=== PATIENT | male | born 1945 | race Caucasian/White ===

== ENCOUNTER 2016-12-07 15:10 | Emergency (ER) | payer MEDICARE ==
--- NOTE | 2016-12-07 15:37 | ERPHSYRPT ---
- History of Present Illness Time Seen by Provider: 12/07/16 15:33 Source: patient Exam Limitations: no limitations Patient Subjective Stated Complaint: feet and lower leg swelling starting yesterday Triage Nursing Assessment: swelling noted to bilateral lower legs. unable to palpate pulses due to swelling. abrasion noted to right lower leg. states ran into chair this AM Physician History: 71 y/o male with history of CHF currently on lasix 40mg daily comes to the ER with complaints of bilateral leg swelling for the past 3 days. Pt has been compliant on his meds and has not increased his salt intake. Pt admits to dyspnea on exertion but denies any chest pain, palpitations, dizziness, cough or wheezing. Pt has had this issue in the past. Timing/Duration: day(s) (3) Activities at Onset: none Aspirin Treatment Today: no aspirin today Allergies/Adverse Reactions: No Known Drug Allergies Allergy (Verified 03/27/16 16:39) Hx Tetanus, Diphtheria Vaccination/Date Given: Yes Hx Influenza Vaccination/Date Given: Yes Hx Pneumococcal Vaccination/Date Given: Yes - Review of Systems Constitutional: No Fever, No Chills Eyes: No Symptoms Ears, Nose, & Throat: No Symptoms Respiratory: Dyspnea on Exertion (JOSE), No Cough, No Dyspnea Cardiac: No Chest Pain, No Edema, No Syncope Abdominal/Gastrointestinal: No Abdominal Pain, No Nausea, No Vomiting, No Diarrhea Genitourinary Symptoms: No Dysuria Musculoskeletal: No Back Pain, No Neck Pain Skin: Other (leg edema), No Rash Neurological: No Dizziness, No Focal Weakness, No Sensory Changes Psychological: No Symptoms Endocrine: No Symptoms All Other Systems: Reviewed and Negative - Past Medical History Pertinent Past Medical History: Yes Neurological History: No Pertinent History ENT History: No Pertinent History Cardiac History: Arrhythmia, High Cholesterol, Hypertension Respiratory History: COPD Endocrine Medical History: Diabetes Type II Musculoskeletal History: Arthritis GI Medical History: GERD History: No Pertinent History Psycho-Social History: No Pertinent History Male Reproductive Disorders: No Pertinent History - Past Surgical History Past Surgical History: Yes Neuro Surgical History: No Pertinent History Cardiac: No Pertinent History Respiratory: No Pertinent History Gastrointestinal: Other Genitourinary: No Pertinent History Musculoskeletal: No Pertinent History Male Surgical History: No Pertinent History Other Surgical History: pilonidal cyst; abdominal surgery in 1966 to repair abdominal wound. - Social History Smoking Status: Never smoker How long have you smoked: 35 Exposure to second hand smoke: No Drug Use: none Patient Lives Alone: Yes - Nursing Vital Signs Nursing Vital Signs: Initial Vital Signs Temperature 98.2 F 12/07/16 15:15 Pulse Rate 72 12/07/16 15:15 Respiratory Rate 20 12/07/16 15:15 Blood Pressure 144/58 12/07/16 15:15 O2 Sat by Pulse Oximetry 97 12/07/16 15:15 Pain Scale Pain Intensity 0 - Physical Exam General Appearance: no apparent distress, alert Eye Exam: PERRL/EOMI, eyes nml inspection Ears, Nose, Throat Exam: normal ENT inspection, moist mucous membranes Neck Exam: normal inspection, non-tender, supple Respiratory Exam: normal breath sounds, lungs clear, No respiratory distress Cardiovascular Exam: regular rate/rhythm, normal heart sounds, No edema Gastrointestinal/Abdomen Exam: soft, No tenderness, No mass Back Exam: normal inspection, No CVA tenderness, No vertebral tenderness Extremity Exam: normal inspection, normal range of motion, pedal edema, swelling Neurologic Exam: alert, oriented x 3, cooperative, normal mood/affect, nml cerebellar function, sensation nml, No motor deficits Skin Exam: normal color, warm, dry Lymphatic Exam: No adenopathy SpO2: 97 Oxygen Delivery: Nasal Cannula - Course Nursing assessment & vital signs reviewed: Yes EKG Interpreted by Me: RATE (HR 68), Sinus Rhythm, NORMAL AXIS, NORMAL INTERVALS , NORMAL QRS Ordered Tests: Active Orders 24 hr Category Date Time Status Certified Medical Asst STAT Care 12/07/16 15:38 Active EKG-ER Only STAT Care 12/07/16 15:37 Active IV Insertion STAT Care 12/07/16 15:37 Active CHEST 2 VIEWS (PA AND LAT) Stat Exams 12/07/16 15:37 Completed CBC W DIFF Stat Lab 12/07/16 15:25 Completed CMP Stat Lab 12/07/16 15:25 Completed MAGNESIUM Stat Lab 12/07/16 15:25 Completed NT PRO BNP Stat Lab 12/07/16 15:25 Completed PROTIME WITH INR Stat Lab 12/07/16 15:25 Completed PTT Stat Lab 12/07/16 15:25 Completed TROPONIN Q3H Lab 12/07/16 15:25 Completed TROPONIN Q3H Lab 12/07/16 18:45 Ordered TROPONIN Q3H Lab 12/07/16 21:45 Ordered TROPONIN Q3H Lab 12/08/16 00:45 Ordered TROPONIN Q3H Lab 12/08/16 03:45 Ordered UA W/RFX UR CULTURE Stat Lab 12/07/16 16:45 Completed Medication Summary Discontinued Medications Generic Name Dose Route Start Last Admin Trade Name Inder PRN Reason Stop Dose Admin Furosemide 60 mg 12/07/16 15:52 12/07/16 16:01 Furosemide 100mg/10 Ml Vial IV 12/07/16 15:53 60 mg STAT ONE Administration Furosemide Confirm 12/07/16 15:55 Furosemide 100mg/10 Ml Vial Administered 12/07/16 15:56 Dose 100 mg .ROUTE .STK-MED ONE Lab/Rad Data: Laboratory Result Diagrams 12/07/16 15:25 12/07/16 15:25 Laboratory Results 12/07/16 12/07/16 12/07/16 Range/Units 16:45 15:25 15:25 WBC (4.0-10.5) K/mm3 RBC (4.1-5.6) M/mm3 Hgb (12.5-18.0) gm/dl Hct (42-50) % MCV (78-100) fl MCH (26-32) pg MCHC (32-36) g/dl RDW (11.5-14.0) % Plt Count (150-450) K/mm3 MPV (6-9.5) fl Gran % (36.0-66.0) % Lymphocytes % (24.0-44.0) % Monocytes % (0.0-12.0) % Eosinophils % (0.00-5.0) % Basophils % (0.0-0.4) % Basophils # (0-0.4) INR 1.05 (0.8-3.0) APTT 32.3 (24.1-36.1) SECONDS Sodium (136-145) mEq/L Potassium (3.5-5.1) mEq/L Chloride (98-107) mEq/L Carbon Dioxide (21-32) mEq/L Anion Gap (5-15) MEQ/L BUN (9-20) mg/dL Creatinine (0.55-1.30) mg/dl Estimated GFR ML/MIN Glucose (70-110) MG/DL Calcium (8.5-10.1) mg/dL Magnesium (1.8-2.4) mg/dL Total Bilirubin (0.2-1.0) mg/dL AST (15-37) U/L ALT (12-78) U/L Alkaline Phosphatase (46-116) U/L Troponin I < 0.017 (0.000-0.056) ng/ml NT-Pro-B Natriuret Pep (0-125) pg/ml Serum Total Protein (6.4-8.2) gm/dL Albumin (3.4-5.0) g/dL Ur Collection Type CCMS Urine Color YELLOW (YELLOW) Urine Appearance CLEAR (CLEAR) Urine pH 7.0 (5-6) Ur Specific [place] 1.010 (1.005-1.025) Urine Protein NEGATIVE (Negative) Urine Ketones NEGATIVE (NEGATIVE) Urine Blood NEGATIVE (0-5) Marques/ul Urine Nitrite NEGATIVE (NEGATIVE) Urine Bilirubin NEGATIVE (NEGATIVE) Urine Urobilinogen 1 (0-1) mg/dL Ur Leukocyte Esterase NEGATIVE (NEGATIVE) Urine Glucose NEGATIVE (NEGATIVE) mg/dL Specimen Received 12-07-16 1650 12/07/16 12/07/16 Range/Units 15:25 15:25 WBC 5.9 (4.0-10.5) K/mm3 RBC 3.87 L (4.1-5.6) M/mm3 Hgb 13.1 (12.5-18.0) gm/dl Hct 41.4 L (42-50) % MCV 107.0 H (78-100) fl MCH 33.8 H (26-32) pg MCHC 31.6 L (32-36) g/dl RDW 13.0 (11.5-14.0) % Plt Count 81 L (150-450) K/mm3 MPV 13.4 H (6-9.5) fl Gran % 58.9 (36.0-66.0) % Lymphocytes % 28.1 (24.0-44.0) % Monocytes % 9.6 (0.0-12.0) % Eosinophils % 3.2 (0.00-5.0) % Basophils % 0.2 (0.0-0.4) % Basophils # 0.01 (0-0.4) INR (0.8-3.0) APTT (24.1-36.1) SECONDS Sodium 144 (136-145) mEq/L Potassium 4.0 (3.5-5.1) mEq/L Chloride 103 (98-107) mEq/L Carbon Dioxide 36.9 H (21-32) mEq/L Anion Gap 7.8 (5-15) MEQ/L BUN 8 L (9-20) mg/dL Creatinine 0.75 (0.55-1.30) mg/dl Estimated GFR > 60 ML/MIN Glucose 162 H (70-110) MG/DL Calcium 8.8 (8.5-10.1) mg/dL Magnesium 1.9 (1.8-2.4) mg/dL Total Bilirubin 0.40 (0.2-1.0) mg/dL AST 23 (15-37) U/L ALT 29 (12-78) U/L Alkaline Phosphatase 150 H (46-116) U/L Troponin I (0.000-0.056) ng/ml NT-Pro-B Natriuret Pep 176 H (0-125) pg/ml Serum Total Protein 6.7 (6.4-8.2) gm/dL Albumin 3.2 L (3.4-5.0) g/dL Ur Collection Type Urine Color (YELLOW) Urine Appearance (CLEAR) Urine pH (5-6) Ur Specific [place] (1.005-1.025) Urine Protein (Negative) Urine Ketones (NEGATIVE) Urine Blood (0-5) Marques/ul Urine Nitrite (NEGATIVE) Urine Bilirubin (NEGATIVE) Urine Urobilinogen (0-1) mg/dL Ur Leukocyte Esterase (NEGATIVE) Urine Glucose (NEGATIVE) mg/dL Specimen Received - Progress Progress: improved Progress Note: 12/07/16 17:19 Pt was given a dose of lasix 60mg IV X 1 dose. The CXR does not show any vascular congestion, EKG normal and the troponin is negative. Pt was advised to start on lasix 60mg daily for 5 days and to F/U with PCP this week. - Departure Time of Disposition: 17:21 Departure Disposition: Home Clinical Impression: Leg edema CHF (congestive heart failure), NYHA class III Qualifiers: Congestive heart failure type: unspecified congestive heart failure type Qualified Code(s): I50.9 - Heart failure, unspecified Condition: Stable Critical Care Time: No Referrals: CASTRO,YAQUELIN YAHIR [Primary Care Provider] - Instructions: Heart Failure, Peripheral Edema -- Bilateral Additional Instructions: Start taking lasix 60mg once daily for 5 days. Follow up with Dr Philippe this week for further management. Prescriptions: Furosemide 20 mg [Lasix 20 mg] 20 mg PO DAILY #5 tablet
[2016-12-07] MEDS ORDERED: Furosemide 100mg/10 ml Vial IV ONE (15:52)
[2016-12-07] MEDS ORDERED: Furosemide 100mg/10 ml Vial ONE (15:55)
[2016-12-07 16:07] LABS: BASOPHIL % 0.2 % (0.0-0.4); Eosinophil % 3.2 % (0.00-5.0); Granulocytes % 58.9 % (36.0-66.0); Lymphocytes % 28.1 % (24.0-44.0); Mean Platelet Volume 13.4 fl (6-9.5); Monocytes % 9.6 % (0.0-12.0); Platelet Count 81 K/mm3 (150-450); Red Blood Count 3.87 M/mm3 (4.1-5.6); White Blood Count 5.9 K/mm3 (4.0-10.5)
--- NOTE | 2016-12-07 16:10 | XRAY ---
Indication: CHF. Leg swelling. Comparison: March 28, 2016. PA/lateral chest again hyperinflated with minimal bibasilar atelectasis/scarring. Remaining lungs clear. Heart and mediastinal structures within normal limits. Vascularity normal. Bony thorax intact. Impression: Stable nonacute chest with chronic features.
[2016-12-07 16:16] LABS: Mean Corpuscular Hemoglobin 33.8 pg (26-32)
[2016-12-07 16:32] LABS: INR 1.05 (0.8-3.0); PROTIME 11.9 SECONDS (8.83-12.87)
[2016-12-07 16:35] LABS: PTT 32.3 SECONDS (24.1-36.1)
[2016-12-07 16:44] LABS: ALBUMIN 3.2 g/dL (3.4-5.0); ALKALINE PHOSPHATASE 150 U/L (46-116); ANION GAP 7.8 MEQ/L (5-15); BLOOD UREA NITROGEN 8 mg/dL (9-20); CHLORIDE 103 mEq/L (98-107); Carbon Dioxide 36.9 mEq/L (21-32); Glucose 162 MG/DL (70-110); MAGNESIUM 1.9 mg/dL (1.8-2.4); SGOT/AST 23 U/L (15-37); SGPT/ALT 29 U/L (12-78); SODIUM 144 mEq/L (136-145); Total Protein 6.7 gm/dL (6.4-8.2)
[2016-12-07 16:53] LABS: Collection Type CCMS
[2016-12-07 16:54] LABS: ADD URINE CULTURE? NO (NO); Bilirubin NEGATIVE (NEGATIVE); Blood NEGATIVE Ery/ul (0-5); COMPLETE URINE MICROSCOPIC? NO; Glucose NEGATIVE (NEGATIVE); Leukocyte Esterase NEGATIVE (NEGATIVE)
[2016-12-07 17:30] VITALS: BP 120/69; PULSE 71; O2SAT 94
== END 2016-12-07 17:44 | disposition home or self-care (01) ==
LOC: ED 15:10
DX: I50.9 Heart failure, unspecified (principal); R60.9 Edema, unspecified; S80.811A Abrasion, right lower leg, initial encounter; Z79.899 Other long term (current) drug therapy; E78.00 Pure hypercholesterolemia, unspecified; I10 Essential (primary) hypertension; E11.9 Type 2 diabetes mellitus without complications; J44.9 Chronic obstructive pulmonary disease, unspecified
CPT/HCPCS: 36000; 36415; 71020; 80053; 81002; 83735; 83880; 84484; 85025; 85610; 85730; 93005; 93041; 96374; 99284; J1940